=== PATIENT | male | born 1970 | race African-American/Black ===

== ENCOUNTER 2017-04-28 09:46 | Emergency (ER) | payer OTHER ==
[~2017-04-28] VITALS: Ht 180.3 cm; Wt 83.0 kg
[~2017-04-28 09:46] MED LIST: AMOXICILLIN500 MG PO; FLEXERIL10 MG PO; IBUPROFEN600 MG PO; NAPROSYN500 MG PO; NO; ZANAFLEX4 MG OR
[2017-04-28] MEDS ORDERED: CYCLOBENZAPR5 MG PO (12:20)
[2017-04-28] MEDS ORDERED: MOTRIN400 MG PO (12:20)
[2017-04-28 12:45] VITALS: BP 130/90
== END 2017-04-28 12:45 | disposition home or self-care (01) | DRG 552 ==
LOC: ED 09:46
DX: M54.2 Cervicalgia (principal); M25.512 Pain in left shoulder; M54.5 Low back pain; V43.62XA Car passenger injured in collision with other type car in traffic accident, initial encounter; Y92.410 Unspecified street and highway as the place of occurrence of the external cause

== ENCOUNTER 2017-05-30 07:54 | Emergency (ER) | payer SELFPAY ==
[~2017-05-30] VITALS: Ht 180.3 cm; Wt 83.0 kg
[~2017-05-30 07:54] MED LIST changes: +CYCLOBENZAPR5 MG PO; +MOTRIN400 MG PO
[2017-05-30 08:56] VITALS: BP 159/66
== END 2017-05-30 09:01 | disposition home or self-care (01) | DRG 950 ==
LOC: ED 07:54
DX: S01.112D Laceration without foreign body of left eyelid and periocular area, subsequent encounter (principal)

== ENCOUNTER 2017-12-23 07:11 | Emergency (ER) | payer SELFPAY ==
[~2017-12-23] VITALS: Ht 180.3 cm; Wt 80.0 kg
[2017-12-23] MEDS ORDERED: TORADOL PO (09:29)
[2017-12-23 09:33] VITALS: BP 139/79
[2017-12-23 09:41] LABS: BARBITURATES NEGATIVE (NEGATIVE); COCAINE NEGATIVE (NEGATIVE); METHADONE NEGATIVE (NEGATIVE); OXCYCODONE NEGATIVE (NEGATIVE); TETRAHYDROCANNABIONOL POSITIVE (NEGATIVE); TRICYLIC ANTIDEPRESSANTS NEGATIVE (NEGATIVE)
== END 2017-12-23 09:34 | disposition home or self-care (01) | DRG 552 ==
LOC: ED 07:11
PROVIDERS: Emergency Medicine
DX: S16.1XXA Strain of muscle, fascia and tendon at neck level, initial encounter (principal); S00.531A Contusion of lip, initial encounter; S10.91XA Abrasion of unspecified part of neck, initial encounter; F17.210 Nicotine dependence, cigarettes, uncomplicated; Y04.0XXA Assault by unarmed brawl or fight, initial encounter

== ENCOUNTER 2020-02-01 14:04 | Emergency (ER) | payer SELFPAY ==
[~2020-02-01] VITALS: Ht 175.3 cm; Wt 81.8 kg
[~2020-02-01 14:04] MED LIST changes: +TORADOL PO
[2020-02-01 16:15] VITALS: BP 141/88
== END 2020-02-01 16:16 | disposition home or self-care (01) | DRG 563 ==
LOC: ED 14:04
DX: S92.001A Unspecified fracture of right calcaneus, initial encounter for closed fracture (principal); F17.210 Nicotine dependence, cigarettes, uncomplicated; W13.8XXA Fall from, out of or through other building or structure, initial encounter; Y92.009 Unspecified place in unspecified non-institutional (private) residence as the place of occurrence of the external cause; Y99.9 Unspecified external cause status

== ENCOUNTER 2020-04-28 03:08 | Emergency (ER) | payer SELFPAY ==
[~2020-04-28] VITALS: Ht 175.3 cm; Wt 88.0 kg
--- NOTE | 2020-04-28 04:25 | NUR ---
BREATHING TREATMENT GIVEN. BREATHING TECH. FOR GOOD DEPOSITION TO THE LUNGS.
[2020-04-28 04:26] LABS: HEMATOCRIT 41.2 % (39.0-50.0); HEMOGLOBIN 13.9 g/dl (14.0-18.0); IMMATURE GRANULOCYTES 0.2 % (0.0-5.0); MEAN CORPUSCULAR HGB 33.4 pG CALC (26.0-32.0); MEAN CORPUSCULAR HGB CONC 33.7 g/dL CAL (32.0-36.0); NEUT# 6.3 thou/uL (1.82-7.42); RED BLOOD COUNT 4.16 mill/uL (4.70-6.10); RED CELL DISTRI WIDTH 12.7 % (11.5-15.5)
[2020-04-28 05:16] VITALS: BP 157/90
[2020-04-28 06:15] LABS: ALBUMIN 4.2 g/dL (3.2-5.0); ALKALINE PHOSPHATASE 96 u/l (38-126); ANION GAP 9 (6-22 (CALC)); BILIRUBIN, TOTAL 0.3 mg/dL (0.0-1.4); BUN 9 mg/dL (9-20); BUN/CREATININE RATIO 8 (12-20 (CALC)); CARBON DIOXIDE 28 mmol/l (22-30); CHLORIDE 105 mmol/l (95-108); CREATININE 1.1 mg/dL (0.7-1.3); GFR > 60 ML/MIN (>=60 (CALC)); GFR FOR AFR.AMER. > 60 ML/MIN (>=60 (CALC)); MYOGLOBIN 20 ng/mL (0 - 121); POTASSIUM 4.3 mmol/l (3.5-5.1); SGOT/AST 26 u/l (17-59); SODIUM 138 mmol/l (137-146); TOTAL PROTEIN 7.1 g/dL (6.3-8.2)
[2020-04-28 06:36] LABS: ACT PARTIAL THROMBO TIME 24.9 SECONDS (20.0-32.5); D-DIMER 0.25 mg/L (0.19-0.60)
== END 2020-04-28 07:10 | disposition home or self-care (01) | DRG 203 ==
LOC: ED 03:08
PROVIDERS: Family Medicine
DX: J45.901 Unspecified asthma with (acute) exacerbation (principal); F17.200 Nicotine dependence, unspecified, uncomplicated; Z20.828 Contact with and (suspected) exposure to other viral communicable diseases

== ENCOUNTER 2020-12-10 02:07 | Emergency (ER) | payer SELFPAY ==
[~2020-12-10] VITALS: Ht 175.3 cm; Wt 75.0 kg
[2020-12-10 02:38] LABS: HEMATOCRIT 43.6 % (39.0-50.0); HEMOGLOBIN 14.6 g/dl (14.0-18.0); IMMATURE GRANULOCYTES 0.1 % (0.0-5.0); MEAN CELL VOLUME 100.5 fL CALC (80.0-100.0); MEAN CORPUSCULAR HGB 33.6 pG CALC (26.0-32.0); MEAN CORPUSCULAR HGB CONC 33.5 g/dL CAL (32.0-36.0); NEUT# 3.13 thou/uL (1.82-7.42); RED BLOOD COUNT 4.34 mill/uL (4.70-6.10)
[2020-12-10 02:56] LABS: ANION GAP 11 (6-22 (CALC)); BUN 12 mg/dL (9-20); BUN/CREATININE RATIO 9 (12-20 (CALC)); CARBON DIOXIDE 26 mmol/l (22-30); CHLORIDE 102 mmol/l (95-108); CREATININE 1.2 mg/dL (0.7-1.3); GFR > 60 ML/MIN (>=60 (CALC)); GFR FOR AFR.AMER. > 60 ML/MIN (>=60 (CALC)); POTASSIUM 3.7 mmol/l (3.5-5.1); SODIUM 135 mmol/l (137-146)
[2020-12-10 05:00] VITALS: BP 162/72
== END 2020-12-10 05:07 | disposition home or self-care (01) | DRG 153 ==
LOC: ED 02:07
PROVIDERS: Family Medicine
DX: J02.9 Acute pharyngitis, unspecified (principal); F17.200 Nicotine dependence, unspecified, uncomplicated
CPT/HCPCS: Q9967

== ENCOUNTER 2023-04-27 22:50 | Emergency (ER) | payer OTHER ==
[~2023-04-27] VITALS: Ht 175.3 cm; Wt 77.0 kg
[2023-04-27 22:58] VITALS: BP 130/80
[2023-04-27 23:00] VITALS: BP 111/73
[2023-04-27 23:30] VITALS: BP 111/71
[2023-04-28 00:01] VITALS: BP 113/68
[2023-04-28 00:30] VITALS: BP 108/65
[2023-04-28 03:17] VITALS: BP 106/6
[2023-04-28] MEDS ORDERED: ORPHENADRINE100 MG PO (05:26)
== END 2023-04-28 03:46 | disposition home or self-care (01) | DRG 605 ==
LOC: ED 22:50
DX: S20.211A Contusion of right front wall of thorax, initial encounter (principal); F17.210 Nicotine dependence, cigarettes, uncomplicated; V43.61XA Car passenger injured in collision with sport utility vehicle in traffic accident, initial encounter